=== PATIENT | male | born 2000 | race African-American/Black ===

== ENCOUNTER 2018-09-11 13:12 | Emergency (ER) | payer BC, SELFPAY | END 2018-09-11 15:05 | disposition home or self-care (01) | LOC: ERS 13:12 | DX: S50.862A Insect bite (nonvenomous) of left forearm, initial encounter (principal); L03.114 Cellulitis of left upper limb; W57.XXXA Bitten or stung by nonvenomous insect and other nonvenomous arthropods, initial encounter | CPT/HCPCS: 99283 ==

== ENCOUNTER 2018-10-06 20:41 | Emergency (ER) | payer BC ==
[2018-10-06] MEDS ORDERED: Ondansetron ODT 4 MG TAB ONE (22:14)
== END 2018-10-06 23:05 | disposition home or self-care (01) ==
LOC: ERS 20:41
DX: K52.9 Noninfective gastroenteritis and colitis, unspecified (principal)
CPT/HCPCS: 99283; Q0162